=== PATIENT | male | born 1950 | race African-American/Black ===

== ENCOUNTER 2018-06-12 12:30 | Emergency (ER) | payer OTHER ==
[~2018-06-12] VITALS: Ht 180.3 cm; Wt 100.7 kg
[~2018-06-12 12:30] MED LIST: ACETAMINOPHEN325 M1 PO; CALCIUM PO; CENTRUM SILVER1 EAC1 PO; COLACE 100 MG100 MG PO; DYAZIDE 37.5-21 EACH PO; ENDOCET 5-3251 EACH PO; EXFORGE PO; FISH OIL 500 M1 EACH PO; HYDROCODON-ACE1 EAC8 PO; HYDROCODONE-AP1 EA11 PO; NAPROSYN500 MG PO; NORCO 5-325 TA1 EACH PO; RELAFEN750 MG PO; TRIAMTERENE-HC1 EAC1 PO; TRICOR145 MG PO; VITCB500GO PO
[2018-06-12] MEDS ORDERED: NORCO 7.5-3251 EACH PO (14:50)
[2018-06-12] MEDS ORDERED: COLCHICINE0.6 M1 PO (14:50)
[2018-06-12] MEDS ORDERED: INDOMETHACIN 2525 MG PO (14:50)
[2018-06-12 16:51] VITALS: BP 165/81
== END 2018-06-12 17:06 | disposition home or self-care (01) ==
LOC: ER 12:30
DX: M10.072 Idiopathic gout, left ankle and foot (principal); I10 Essential (primary) hypertension; E78.00 Pure hypercholesterolemia, unspecified; G89.29 Other chronic pain; M54.9 Dorsalgia, unspecified; Z87.442 Personal history of urinary calculi

== ENCOUNTER → 2018-07-27 | Outpatient (CLI) | payer OTHER ==
[~2018-07-27] VITALS: Ht 185.4 cm; Wt 123.4 kg
[~2018-07-27] MED LIST changes: +AMLOD-VALSA-HC1 EAC4 PO; +COLCHICINE0.6 M1 PO; +FLOMAX0.4 MG PO; +INDOMETHACIN 2525 MG PO; +KLOR-CON 1010 MEQ PO; +NORCO 7.5-3251 EACH PO
--- NOTE | ~2018-07-27 | HPC ---
[facility] [place] [address] PAIN MANAGEMENT CONSULTATION Name: SHANNONBIJU EPPERSON [id number] Admission: 07/27/18 ������������������ Attend Phys: Yogesh Delong MD Discharge: ������������������ Date of : 48 Report #: [id number] THIS REPORT FOR: //name// CC: Jaime Delong DATE OF SERVICE: 07/27/2018 CHIEF COMPLAINT: Pain on the right butt, going down into the right leg, calf and foot. HISTORY OF PRESENT ILLNESS: The patient is a 68-year-old gentleman who has been referred to the Pain Clinic for evaluation of back and leg pain. States that he has pain and discomfort, which has been problematic in the past. He began noticing pain and discomfort some years ago in 2009. He is having pain now in the lower portion of his back, which radiates down into his buttocks, right leg, and right foot. Describes it as steady, rhythmic, aching, and throbbing. Rates it as a 7/10. It is exacerbated by standing, walking, and activities of daily living. He is walking with a cane at this juncture to help decrease the pain and discomfort. He has had decompressive laminectomy on 12/23/2010. This was in the right L4-L5 disk distribution. In the past, he did have some problems with foot drop and progressive weakness in his leg. In 2013, he had an MRI, which showed L4-L5 superimposed small central disk extrusion with bilateral facet arthrosis and moderate to severe right neural foraminal narrowing. He also had L5-S1 severe right and moderate to severe left neural foraminal narrowing. ALLERGIES: No known drug allergies. PAST MEDICAL HISTORY: Kidney stone removal, hypertension, hypercholesterolemia, low back pain, gout in the left foot, tinea versicolor. CURRENT MEDICATIONS: Multivitamin, Centrum tablet, triamterene/hydrochlorothiazide 37.5/25, acetaminophen 650 mg q. 4-6 hours, amlodipine/valsartan (Exforge), TriCor 145 mg, Endocet 5/325 q. 4-6 hours, calcium 600 mg. PAST SURGICAL HISTORY: Lumbar spinal stenosis with neurogenic claudication, decompressive lumbar laminectomy for stenosis and nerve root decompression on the right L4-L5 level on 12/23/2010, and kidney stones in October 1982. SOCIAL HISTORY: He is retired. REVIEW OF SYSTEMS: Fatigue, weakness, eye disease/injury, wears glasses, glaucoma/cataract, shortness of breath when lying flat, loss of appetite, rash/itching, change in skin color, numbness [place] [address] PAIN MANAGEMENT CONSULTATION Name: BIJU ORTEGA Room #: REG [facility] Padmini#: [id number] Admission: 07/27/18 ������������������ Attend Phys: Yogesh Delong MD Discharge: ������������������ Date of : 48 Report #: [id number] LABORATORY: MRI of the lumbar spine dated 09/04/2013: At L4-L5, there is a diffuse posterior disk bulge with a superimposed small central disk extrusion seen at the sagittal T2 slice 9 and extending cephalad from the disk space approximately 7 mm. There is effacement of the thecal sac with narrowing of the thecal sac to 6 mm. There is severe bilateral facet arthrosis and spurring with thickening of the ligamentum flavum up to 5-6 mm. There is significant bilateral articular zone stenosis. There is posterior osteophyte ridging with extension of the disk bulge and osteophyte ridging into the foramen regions, where there is at least moderate to severe medial right neural foraminal stenosis seen best on sagittal T2 slice 6 and moderate left neural foraminal stenosis. PAIN CLINIC ASSESSMENT/PQRS: 1. The patient does have some arthritic changes in the lower portion of his back and has undergone back surgery. He is not being treated for rheumatoid arthritis. 2. Height 6 feet 1 inch, weight 272 pounds, BMI is 35.9. 3. Vital signs: Blood pressure 184/90, pulse 76, respiratory rate 16, room air saturation 98%. 4. Pain intensity: 7/10. 5. Fall risk: The patient has not fallen in the last 3 months. He walks with a cane for security. 6. Blood thinner: The patient is not on a blood thinning medication. 7. History of hypertension: The patient is being treated for hypertension. 8. Opioid therapy greater than 6 weeks: The patient is receiving hydrocodone to help control his pain. 9. Functional assessment tool: 48/70. 10. Risk assessment tool: Opioid risk is low. 11. Recreational drug use: The patient denies use of recreational drugs. 12. Tobacco: The patient smokes. He has smoked for 25 years. He smokes 1 pack of cigarettes lasts about 3 weeks. We discussed the risks and benefits of smoking cessation. 13. Alcohol: The patient drinks about 2 alcoholic beverages daily. PHYSICAL EXAMINATION: GENERAL: The patient is a well-developed, well-nourished, black male. He appears his stated age. He is alert and oriented x 3. Affect is appropriate. Speech is fluent. HEENT: Normocephalic, atraumatic. Extraocular eye muscles intact. Sclerae nonicteric. Mucous membranes are moist. HEART: Regular rate. ABDOMEN: Nontender. Bowel sound is present. MUSCULOSKELETAL: Upper extremity muscle strength is judged to be 5/5 for the major muscle groups in the upper extremity. The patient is without significant scoliosis, kyphosis or lordosis. A well-healed incision on the lower portion of [facility] [address] [place] [address] PAIN MANAGEMENT CONSULTATION Name: SHANNONBIJU EPPERSON [facility] #: [facility] [id number] Admission: 07/27/18 ������������������ Attend Phys: Yogesh Delong MD Discharge: ������������������ Date of : 48 Report #: [id number] his back. Lower extremity muscle strength on the left is 5-/5. Lower extremity muscle strength on the right is 4+/5. The patient ambulates with use of a cane. IMPRESSION: 1. Lumbar radiculopathy at L4-L5 with pain radiating down into the right leg. 2. Kidney stone removal. 3. Hypertension. 4. Hypercholesterolemia. 5. Low back pain. 6. Gout in the left foot. 7. Tinea versicolor. RECOMMENDATIONS: We discussed treatment options with the patient. Risks and benefits of an epidural steroid injection were discussed. The patient has had surgery on the lower portion of his back. We will, therefore, proceed with a transforaminal epidural steroid injection. A model was used to indicate the area of probable pathology. We explained to the patient the reason for doing the injection in this fashion. He states that he understands. The possible complication of the procedure could include but are not limited to infection, worsening of pain, no improvement in pain, nerve damage, bleeding, and the patient elects to proceed. PROCEDURE NOTE: The patient was taken to the procedure area. He was assisted in getting on the examination table. A pillow was placed under his abdomen to bolster and improve positioning. Fluoroscopy using anterior, posterior as well as lateral viewing were implemented. The patient's back was sterilely prepped with chlorhexidine solution and allowed to dry. A 0.25% bupivacaine using a 25-gauge needle was used to anesthetize the area at the L4-L5 area. A 20-gauge spinal needle using fluoroscopy to place in the appropriate position was undertaken. After appropriate placement, a total of 80 mg Depo-Medrol and 2 mL of 0.25% bupivacaine with 40 mg triamcinolone was injected. The patient tolerated the procedure well. There were no complications. He remained in the Pain Clinic for an appropriate amount of time. He will follow up in the future as needed. We would like to thank you for letting us participate in his care. We hope he continues to improve. ��������������������������������������������� ���������������������������������������� By: ��������������������������������������������� [id number] Yogesh Delong MD /lula
[2018-07-27 08:52] VITALS: BP 184/90
--- NOTE | 2018-07-27 09:49 | NUR ---
Pain Clinic Assessment: 1. History of Osteoarthritis: Not Applicable History of Rheumatoid Arthritis: Not Applicable 2. Height: 6 ft. 1 in. 185.4 cm. Weight: 272.0 lb. oz. 123.379 kg. Patient's BMI: 35.9 3. Vital Signs: BP: 184/90 Pulse: 76 Resp: 16 Temp: 02 Sat: 98 ECG Mon: 4. Pain Intensity: 7 5. Fall Risk: Dizziness: N Needs help standing or walking: Y Fallen in the last 3 months: N Fall risk comments: 6. Patient on Blood Thinner: None 7. History of Hypertension: Y 8. Opioid Therapy greater than 6 weeks: Y Opiate Contract Signed: 9. Risk Assessment Tool Provided: Opioid Risk Tool 10. Functional Assessment Tool: 48/ 11. Recreational Drug Use: Never Drug Type: Tobacco Use: Former Smoker Tobacco Type: Cigarettes Amount or Packs/day: 3 WEEK How Many Years: 25 Alcohol Use: Yes Frequency: Daily Quant: 2
== END | disposition home or self-care (01) ==
LOC: PAIN 06:54
DX: M54.16 Radiculopathy, lumbar region (principal); G89.29 Other chronic pain; I10 Essential (primary) hypertension; E78.00 Pure hypercholesterolemia, unspecified; M10.9 Gout, unspecified; B36.0 Pityriasis versicolor; Z98.890 Other specified postprocedural states; Z87.442 Personal history of urinary calculi; Z79.899 Other long term (current) drug therapy; Z79.891 Long term (current) use of opiate analgesic

== ENCOUNTER → 2018-08-24 | Outpatient (CLI) | payer OTHER ==
[~2018-08-24] VITALS: Ht 185.4 cm; Wt 125.1 kg
--- NOTE | ~2018-08-24 | HPC ---
[facility] [address] [address] [place] [address] PAIN MANAGEMENT CONSULTATION Name: BIJU ORTEGA [facility] [id number] Admission: 08/24/18 ������������������ Attend Phys: Yogesh Delong MD Discharge: ������������������ Date of : 48 Report #: [id number] THIS REPORT FOR: //name// CC: Jaime Delong DATE OF SERVICE: 08/24/2018 CHIEF COMPLAINT: Right leg pain. FOLLOWUP HISTORY: The patient is a 68-year-old gentleman who has been seen in the pain clinic because of pain radiating down to his right leg. It involves his right buttocks and radiates down into his foot. He describes it as a throbbing discomfort, aching rhythmic and steady. He has continued to walk with a cane. He has had decompressive laminectomy on 12/23/2010. Describes the pain that radiates down the posterior portion of his right leg in the L5-S1 distribution as well as pain in the L4-L5 distribution today. He has returned today with the desire to undergo treatment. He did note some improvement after the first transforaminal epidural steroid injection on 07/27/2018. He has returned today for additional injection. ALLERGIES: No known drug allergies. CURRENT MEDICATIONS: Triamterene/hydrochlorothiazide 37.5/25, Centrum tablet, multivitamin, acetaminophen 625 mg every 4-6 hours p.r.n., amlodipine/valsartan, TriCor 145 mg, Endocet 5/325 4-6 hours p.r.n., and calcium. PAIN CLINIC ASSESSMENT/PQRS: 1. The patient does have some arthritic changes in the lower portion of his back. He has undergone back surgery. He is not being treated for rheumatoid arthritis. 2. Height 6 feet 1 inch, weight 275 pounds, BMI is 36.4. 3. Vital signs: Blood pressure 180/101, pulse 76, respiratory rate 16, room air saturation 100. 4. Pain intensity 4-5/10. 5. Fall risk. The patient has not fallen in the last 3 months. He does walk with a cane. 6. Blood thinner. The patient is not on a blood thinning medication. 7. Hypertension. The patient is being treated for hypertension. 8. Opioids greater than 6 weeks. The patient has received this medication from his primary. 9. Functional assessment tool, low for opioid use. 10. Functional assessment tool 48/70. 11. Recreational drug use: The patient denies. 12. Tobacco: The patient is a former smoker. 13. Alcohol: The patient denies use of alcoholic beverages. [address] [address] PAIN MANAGEMENT CONSULTATION Name: SHANNONBIJU EPPERSON Room #: REG [facility].#: [id number] Admission: 08/24/18 ������������������ Attend Phys: Ygoesh Delong MD Discharge: ������������������ Date of : 48 Report #: [id number] PHYSICAL EXAMINATION: GENERAL: The patient is a well-developed, well-nourished black male, appears his stated age. He is somewhat obese. His affect is appropriate. Speech is fluent. HEENT: Normocephalic, atraumatic. Extraocular eye muscles intact. Sclerae nonicteric. Mucous membranes moist. HEART: Regular rhythm and rate. CHEST: Clear to auscultation, bowels sounds present. MUSCULOSKELETAL: Strength in the upper extremity judged to be 5/5 for the major muscle groups in the upper extremity. The patient is without significant scoliosis, kyphosis, has a well-healed scar in the lower portion of his back. Has pain that is radiating down in the L4-L5 dermatomal distribution as well as in the L5-S1 on the right side. Muscle strength is judged to be 4/5 for the right lower extremity and 5-/5 for the left lower extremity. Continues to ambulate with his cane. IMPRESSION: 1. Lumbar radiculopathy, L4-L5 as well as L5-S1 on the right leg. 2. Kidney stone history. 3. Hypertension. 4. Hypercholesterolemia. 5. Low back pain. 6. Gout in the left foot. 7. Tinea versicolor. RECOMMENDATIONS: We discussed treatment options with the patient. Risks and benefits of an epidural steroid injection were again reviewed. They include but are not limited to infection, worsening of pain, no improvement in pain, increased discomfort in muscular nature. The patient elects to proceed. PROCEDURE NOTE: The patient was taken to the procedure area. He was assisted in getting on the examination table. His back was sterilely prepped with a Betadine solution. Fluoroscopy using anterior, posterior as well as lateral viewing were implemented. A pillow had been placed on his abdomen to bolstered and improved positioning. His back had been sterilely prepped. A 25-gauge needle was then advanced in the area of the L4-L5 as well as the L5-S1 area using a transforaminal approach. A 6-inch Chiba 22 was then advanced at the L4/L5 area. After appropriate placement was noted, the L5-S1 area was identified. A 25-gauge needle was used and 0.25% bupivacaine was used to numb up this area. A second 22-gauge Chiba was then advanced into the appropriate placement. Fluoroscopy indicated appropriate placement. Total of 80 mg Depo-Medrol was placed at the L4-L5 area and 80 mg at the L5-S1 area. The patient's pain decreased and was 0 at the time of discharge. He will follow up [facility] [address] [place] [address] PAIN MANAGEMENT CONSULTATION Name: SHANNONBIJU EPPERSON Room #: REG CLI M.R.#: [id number] Admission: 08/24/18 ������������������ Attend Phys: Yogesh Delong MD Discharge: ������������������ Date of : 48 Report #: [id number] in the future as needed. We would like to thank you for letting us participate in his care. We hope he continues to improve. ��������������������������������������������� ���������������������������������������� By: ��������������������������������������������� [id number] Yogesh Delong MD /nt
[2018-08-24 09:11] VITALS: BP 180/101
--- NOTE | 2018-08-24 09:20 | NUR ---
Pain Clinic Assessment: 1. History of Osteoarthritis: Not Applicable History of Rheumatoid Arthritis: Not Applicable 2. Height: 6 ft. 1 in. 185.4 cm. Weight: 275.8 lb. oz. 125.102 kg. Patient's BMI: 36.4 3. Vital Signs: BP: 180/101 Pulse: 76 Resp: 16 Temp: 02 Sat: 100 ECG Mon: 4. Pain Intensity: 4-5 5. Fall Risk: Dizziness: Y Needs help standing or walking: N Fallen in the last 3 months: N Fall risk comments: 6. Patient on Blood Thinner: None 7. History of Hypertension: Y 8. Opioid Therapy greater than 6 weeks: Y Opiate Contract Signed: 9. Risk Assessment Tool Provided: Opioid Risk Tool 10. Functional Assessment Tool: 11. Recreational Drug Use: Never Drug Type: Tobacco Use: Former Smoker Tobacco Type: Amount or Packs/day: How Many Years: Alcohol Use: Yes Frequency: Daily Quant:
--- NOTE | 2018-08-31 10:24 | NUR ---
08/31/18 PHONE CALL TO PATIENT REGARDING HIS RIGHT TRANSFORAMINAL-REPORTS THAT HIS PAIN IS MUCH BETTER-RATING HIS PAIN AT A 2-3/10. HE STATED THAT ON THE 5TH DAY HE HAD A QUICK SHARP PAIN BUT IT HAS RESOLVED. �������������������������������������������������������
== END | disposition home or self-care (01) ==
LOC: PAIN 07-27 12:19
DX: M54.16 Radiculopathy, lumbar region (principal); G89.29 Other chronic pain; I10 Essential (primary) hypertension; E78.00 Pure hypercholesterolemia, unspecified; M10.9 Gout, unspecified; B36.0 Pityriasis versicolor; E66.09 Other obesity due to excess calories; Z87.442 Personal history of urinary calculi; Z98.890 Other specified postprocedural states; Z79.899 Other long term (current) drug therapy; Z87.891 Personal history of nicotine dependence; Z68.36 Body mass index [BMI] 36.0-36.9, adult